=== PATIENT | male | born 1960 | race Caucasian/White ===

== ENCOUNTER 2016-10-01 12:30 | Outpatient (RCR) | payer BC ==
[~2016-10-01 12:30] MED LIST: ATIVAN 0.50.5 MG/TAB PO; BUFFERED ASPIR325 M1 PO; CLARITIN 1010 MG/TAB PO; DEXILANT PO; NORCO 325 MG-7.1 TAB PO; ONE DAILY1 TA1 PO; PERCOCET 325 MG1 TA2 PO; PREVACID 15MG15 M1 PO
[2016-10-17] MEDS ORDERED: AMBIEN 5MG TABLE5 MG PO (10:17)
[2016-10-17] MEDS ORDERED: DESYREL 50MG50 MG PO (10:17)
== END 2016-10-10 08:27 | disposition home or self-care (01) ==
LOC: WSPT 12:30
DX: M47.12 Other spondylosis with myelopathy, cervical region (principal); Z98.1 Arthrodesis status

== ENCOUNTER → 2016-10-17 | Outpatient (CLI) | payer BC ==
[~2016-10-17] VITALS: Ht 180.3 cm; Wt 100.5 kg
[~2016-10-17] MED LIST changes: +AMBIEN 5MG TABLE5 MG PO; +DESYREL 50MG50 MG PO
[2016-10-17 10:38] VITALS: BP 124/74; PULSE 62
[2016-10-17 11:30] VITALS: BP 150/78; PULSE 65
== END ==
LOC: COL.RAD 09:46
DX: M51.36 Other intervertebral disc degeneration, lumbar region (principal); M25.551 Pain in right hip
CPT/HCPCS: J3301

== ENCOUNTER → 2017-02-23 | Outpatient (CLI) | payer BC ==
[~2017-02-23] MED LIST changes: +ULTRAM 50MG TAB50 MG PO
== END ==
LOC: COL.RAD 09:50
DX: M47.27 Other spondylosis with radiculopathy, lumbosacral region (principal); M51.16 Intervertebral disc disorders with radiculopathy, lumbar region

== ENCOUNTER → 2017-04-22 | Outpatient (CLI) | payer BC ==
[~2017-04-22] VITALS: Ht 180.3 cm; Wt 100.7 kg
[~2017-04-22] MED LIST changes: +DESYREL 100MG100 MG PO
[2017-04-22 06:52] VITALS: BP 119/77; PULSE 59
[2017-04-22 07:48] VITALS: BP 117/74; PULSE 51
== END ==
LOC: COL.RAD 06:27
DX: M54.16 Radiculopathy, lumbar region (principal)
CPT/HCPCS: J3301

== ENCOUNTER → 2017-11-09 | Outpatient (CLI) | payer BC ==
[~2017-11-09] VITALS: Ht 180.3 cm; Wt 45.9 kg
[2017-11-09 09:15] VITALS: BP 119/86; PULSE 57
[2017-11-09 11:10] VITALS: BP 116/78; PULSE 57
== END ==
LOC: COL.RAD 07:46
DX: M51.16 Intervertebral disc disorders with radiculopathy, lumbar region (principal)
CPT/HCPCS: J3301